=== PATIENT | male | born 1945 | race Caucasian/White ===

== ENCOUNTER 2019-10-16 08:51 | Outpatient (CLI) | payer MEDICARE, SELFPAY ==
--- NOTE | 2019-10-16 09:42 | ECG_ITS ---
Measurements Intervals [place] Rate: 84 P: 44 NE: 168 QRS: -5 QRSD: 89 T: 8 QT: 378 QTc: 447 Interpretive Statements SINUS RHYTHM VOLTAGE CRITERIA FOR LVH BORDERLINE T WAVE ABNORMALITY- ANT/INF LEADS BASELINE ARTIFACT- I, II, III, AVR, AVL, AVF, V5-V6 BORDERLINE ECG Electronically Signed On 10-16-2019 10:54:49 [facility] [employer] by Ramiro Meléndez D.O.
[2019-10-16 10:08] LABS: Basophils Percent Auto 0.3 % (0.2-1.2); Eosinophils Absolute Auto 0.1 K/mm3 (0-0.3); Hematocrit 45.2 % (42.0-52.0); Hemoglobin 14.8 g/dL (14.0-18.0); Immature Granulocyte Absolute 0.02 K/mm3 (0.00-0.031); Immature Granulocyte Percent A 0.3 % (0-0.5); Lymphocytes Absolute Auto 1.74 K/mm3 (0.9-3.2); Lymphocytes Percent Auto 26.8 % (18.3-44.2); Mean Corpuscular HGB Conc 32.7 g/dl (32-36); Mean Corpuscular Volume 94.6 fl (80-100); Mean Platelet Volume 10.1 fl (7.4-10.4); Monocytes Absolute Auto 0.6 K/mm3 (0.1-0.6); Monocytes Percent Auto 9.4 % (2.6-8.5); Neutrophils Percent Auto 61.2 % (45.5-73.1); Platelet Count Result 231 k/mm3 (150-375); Red Blood Count 4.78 M/mm3 (4.6-6.20); Red Cell Distribution Width 12.6 % (11.5-14.5); White Blood Count 6.5 K/mm3 (4.5-10.0)
[2019-10-16 10:16] LABS: Partial Thromboplastin Time 23.2 SECONDS (22.3-36.8); Prothrombin Time 12.4 Seconds (11.1-14.7)
[2019-10-16 10:17] LABS: Alanine Aminotransferase 41 U/L (4-50); Alkaline Phosphatase 92 U/L (38-126); Aspartate Amino Transferase 47 U/L (17-59); Bilirubin,Total 1.3 mg/dL (0.2-1.3); Blood Urea Nitrogen 16 mg/dL (9-20); Calcium 9.5 mg/dL (8.4-10.2); Carbon Dioxide 28 mmol/L (22-30); Chloride 101 mmol/L (98-107); Estimated Glomerular Filt Rate > 60; Glucose 110 mg/dL (75-110); Potassium 3.7 mmol/L (3.4-5.0); Sodium 141 mmol/L (137-145)
== END 2019-10-16 08:52 | disposition home or self-care (01) ==
PROVIDERS: Visit Provider Urology
DX: I10 Essential (primary) hypertension (principal); C61 Malignant neoplasm of prostate
CPT/HCPCS: 36415; 80053; 85025; 85610; 85730; 86850; 86900; 86901; 87086; 87088; 93005

== ENCOUNTER 2023-02-07 08:16 | Emergency (ER) | payer MEDICARE, SELFPAY ==
--- NOTE | ~2023-02-07 | XR_ITS ---
EXAMINATION: XR chest 2V DATE: 02/07/2023 08:45 INDICATION: Productive cough TECHNIQUE: PA and lateral views of the chest are obtained. COMPARISON: 11/08/2011 FINDINGS: The lungs are free of acute opacities. No pleural effusion or pneumothorax. The cardiomedia stinal silhouette is normal. There is mild thoracic spondylosis. 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 IMPRESSION: 1. No acute cardiopulmonary abnormality. Reviewed, dictated and finalized at location B.
[2023-02-07 08:25] VITALS: BP 123/81; PULSE 97; RESP 18; TEMP 36.1; O2SAT 96
--- NOTE | 2023-02-07 08:38 | ED.URI ---
HPI - URI/Sore Throat General Chief Complaint: Upper Respiratory Infection Stated Complaint: Congestion,Cough Time Seen by Provider: 02/07/23 08:18 Source: patient Mode of arrival: ambulatory Limitations: no limitations History of Present Illness HPI Narrative: 77-year-old male presents to [facility] accompanied by his for complaints of nonproductive cough, nasal congestion and chest congestion for the past 5 days. Patient denies ear pain, sore throat, fever, body aches, chills, shortness of breath, wheezing, nausea, vomiting or diarrhea. Patient is nonsmoker. Patient denies sick contacts. Patient denies recent travel. Patient has been taking [id number] [place] and Mucinex with minimal relief. Patient reports that he does have history of pneumonia and bronchitis. MD elicited complaint: cough Onset (ago): day(s) Able to tolerate fluids by mouth: Yes Exacerbating factors: nothing Relieving factors: nothing Treatments prior to arrival: cold medicine Related Data Home Medications Medication Instructions Recorded Confirmed atorvastatin 20 mg tablet 20 mg PO DAILY 10/16/19 02/07/23 diphenhydramine 25 1 tablet PO HS PRN SLEEP 10/16/19 02/07/23 mg-acetaminophen 500 mg tablet (Tylenol PM Extra Strength) hydrochlorothiazide 25 mg tablet 25 mg PO DAILY 10/16/19 02/07/23 prednisone 10 mg tablet 10 mg PO DAILY 02/07/23 02/07/23 Allergies Allergy/AdvReac Type Severity Reaction Status Date / Time No Known Allergies Allergy Mild Verified 02/07/23 08:18 Review of Systems Constitutional: Constitutional: Denies chills, Denies fatigue, Denies fever(s) and Denies weakness ENT: Denies vertigo, Denies dizziness, Denies epistaxis and Reports nasal congestion Cardiovascular: Cardiovascular: Denies chest pain Respiratory: Respiratory: Reports chest congestion, Reports cough, Denies dyspnea and Denies wheezing Gastrointestinal: Gastrointestinal: Denies heartburn, Denies diarrhea, Denies nausea and Denies vomiting Integumentary/Breasts: Skin/Breast: Denies rash Neurologic: Denies vertigo, Denies dizziness, Denies syncope and Denies headache(s) [facility], [facility] Past Medical History Medical History (Updated 02/07/23 @ 09:08 by Angelica Mason APRN) Arthritis Hyperlipidemia Hypertension Prostate cancer Social History Social History Smoking status: Never smoker Alcohol intake: current Drinks per week: 14 Substance use: never Substance use type: does not use Gender identity (if verbalized by the patient): Male Spiritual care concerns: No Agree to blood products: No Comments At time of signature, I agree with nursing past medical, surgical, social and family history. There is no relevant family history pertinent to the presenting complaint. Exam Const: General: healthy appearing and no acute distress Nutritional Appearance: well nourished Orientation/consciousness: patient oriented x3 Limitations: no limitations HENMT: Head: normal to inspection Ears: external ears normal and TM's normal bilaterally Face/Nose/Sinus: Normal external nose present Face and sinus: normal facial exam Mouth: Yes Normal oral and palatal mucosa present and Yes moist mucous membranes Teeth and gingiva: dentition normal Throat: posterior oropharynx normal and uvula midline Neck: Neck: normal visual inspection Resp: Effort & Inspection: normal respiratory effort and not labored Auscultation: clear to auscultation bilaterally, no crackles, no rales, no rhonchi, no wheezes and breath sounds present Cardio: Rate: regular rate Rhythm: regular rhythm Heart sounds: no murmurs Skin: General skin exam: normal color Rashes: no rashes Wounds: no wounds Neuro: General: patient oriented x3 Speech: normal speech Psych: Affect: normal affect Attitude: cooperative Course Course Level of Care: Express Care Visit Vital Signs Vital signs: Vital Signs [place]
== END 2023-02-07 09:10 | disposition home or self-care (01) ==
PROVIDERS: Emergency Provider Nurse Practitioner Family; PCP Family Medicine
DX: J06.9 Acute upper respiratory infection, unspecified (principal); M19.90 Unspecified osteoarthritis, unspecified site; E78.5 Hyperlipidemia, unspecified; I10 Essential (primary) hypertension; Z85.46 Personal history of malignant neoplasm of prostate
CPT/HCPCS: 71046; 99213; G0463

== ENCOUNTER 2025-01-28 13:41 | Emergency (ER) | payer MEDICARE, SELFPAY ==
[2025-01-28 13:47] VITALS: BP 144/87; PULSE 97; RESP 15; TEMP 36.6; O2SAT 96
--- NOTE | 2025-01-28 14:10 | ED_ITS ---
HPI - Wound/Laceration General Chief Complaint: Wound/Laceration Stated Complaint: lac to R leg Time Seen by Provider: 01/28/25 14:00 Focused HPI: Patient is a 79-year-old male who presents to the ER with a right calf laceration. He reports his dog jumped on him yesterday and, either the dogs toenails or collar, scratched the medial portion of his right calf. Patient's wound is approximately 3 in long and continues to ooze blood. He endorses a history of high blood pressure and hyperlipidemia, but reports he is not on blood thinners. Patient denies any pain, calf pain, ankle pain, decreased range of motion. GENERAL: Well-appearing, well-nourished, and in no acute distress. HEAD: Normocephalic, atraumatic. CHEST: Clear to auscultation. ?No respiratory distress. HEART: Regular rate and rhythm.? NEURO: ?Alert and oriented x3. Patient screened in triage and initial orders placed.? ?Additional care and disposition to be based upon?diagnostic testing and treatment. Related Data Home Medications ?Medication ?Instructions ?Recorded ?Confirmed ?Last Taken ?Type atorvastatin 20 mg tablet 20 mg PO DAILY 10/16/19 02/07/23 10/23/19 04:30 History diphenhydramine 25 1 tablet PO HS PRN SLEEP 10/16/19 02/07/23 10/21/19 History mg-acetaminophen 500 mg tablet (Tylenol PM Extra Strength) hydrochlorothiazide 25 mg tablet 25 mg PO DAILY 10/16/19 02/07/23 10/23/19 04:30 History prednisone 10 mg tablet 10 mg PO DAILY 02/07/23 02/07/23 Unknown History Allergies Allergy/AdvReac Type Severity Reaction Status Date / Time No Known Allergies Allergy Mild Verified 01/28/25 13:42 [facility] Past Medical History Medical History (Updated 01/28/25 @ 15:36 by Praveena Hobson III, DO) Prostate cancer Arthritis Hypertension Hyperlipidemia Social History Social History Smoking status: Never smoker Alcohol intake: current Drinks per week: 14 Substance use: never Substance use type: does not use Gender identity (if verbalized by the patient): Male Spiritual care concerns: No Agree to blood products: No Course Vital Signs Vital signs: Vital Signs Temperature 36.6 C 01/28/25 13:47 Pulse Rate 97 01/28/25 13:47 Respiratory Rate 15 01/28/25 13:47 Blood Pressure 144/87 H 01/28/25 13:47 Pulse Oximetry 96 01/28/25 13:47 Oxygen Delivery Room Air 01/28/25 13:47 Temperature 36.6 C 01/28/25 15:44 Pulse Rate 90 01/28/25 15:44 Respiratory Rate 16 01/28/25 15:44 Blood Pressure 140/89 01/28/25 15:44 Pulse Oximetry 97 01/28/25 15:44 Oxygen Delivery Room Air 01/28/25 13:47 Discharge Plan Discharge Clinical Impression: Skin tear Patient Disposition: Home, Self-Care Condition: Stable Instructions: Antibiotic Form, Skin Tear (ED) Patient Language: Ukrainian Prescriptions: No Action prednisone 10 mg tablet 10 mg PO DAILY doxycycline hyclate 100 mg capsule 100 mg PO BID 10 Days Qty: 20 0RF benzonatate 100 mg capsule 100 mg PO TID PRN (Reason: cough) Qty: 20 0RF atorvastatin 20 mg Tablet 20 mg PO DAILY hydrochlorothiazide 25 mg Tablet 25 mg PO DAILY diphenhydramine-acetaminophen [Tylenol PM Extra Strength] 25-500 mg Tablet 1 tablet PO HS PRN (Reason: SLEEP) hyoscyamine sulfate [Anaspaz] 0.125 mg Tablet,Disintegrating 0.125 mg sublingual Q4H PRN (Reason: Bladder Spasm) 10 Days Qty: 40 0RF Follow-up/Referrals: Kat,Chai Andrade MD [Primary Care Provider] -
--- NOTE | 2025-01-28 15:30 | ED_ITS ---
HPI - Wound/Laceration General Chief Complaint: Wound/Laceration Stated Complaint: lac to R leg Time Seen by Provider: 01/28/25 14:00 History of Present Illness HPI narrative: Pt had his dog jump onto him and scratch his leg causing a skin tear that continues to bleed. Dressing applied. Pt denies other injury. Related Data Home Medications ?Medication ?Instructions ?Recorded ?Confirmed ?Last Taken ?Type atorvastatin 20 mg tablet 20 mg PO DAILY 10/16/19 02/07/23 10/23/19 04:30 History diphenhydramine 25 1 tablet PO HS PRN SLEEP 10/16/19 02/07/23 10/21/19 History mg-acetaminophen 500 mg tablet (Tylenol PM Extra Strength) hydrochlorothiazide 25 mg tablet 25 mg PO DAILY 10/16/19 02/07/23 10/23/19 04:30 History prednisone 10 mg tablet 10 mg PO DAILY 02/07/23 02/07/23 Unknown History Allergies Allergy/AdvReac Type Severity Reaction Status Date / Time No Known Allergies Allergy Mild Verified 01/28/25 13:42 Review of Systems Review of Systems: All systems reviewed & are unremarkable except as noted in HPI and below PMFSH Past Medical History Medical History (Updated 01/28/25 @ 15:36 by Praveena Hobson III, DO) Prostate cancer Arthritis Hypertension Hyperlipidemia Social History Social History Smoking status: Never smoker Alcohol intake: current Drinks per week: 14 Substance use: never Substance use type: does not use Gender identity (if verbalized by the patient): Male Spiritual care concerns: No Agree to blood products: No Exam Const: General: healthy appearing and no acute distress Nutritional Appearance: well nourished Orientation/consciousness: patient oriented x3 Limitations: no limitations Chest: Chest palpation & inspection: normal inspection of the chest Resp: Effort & Inspection: normal respiratory effort Auscultation: clear to auscultation bilaterally Cardio: Rate: regular rate Rhythm: regular rhythm Skin: Other: skin tear right leg with small area of superficial venous bleeding, area cauterized with silver nitrate which mostly stopped bleeding, wrapped with coban, bleeding controlled. Course Vital Signs Vital signs: Vital Signs Temperature 97.8 F 01/28/25 13:47 Pulse Rate 97 01/28/25 13:47 Respiratory Rate 15 01/28/25 13:47 Blood Pressure 144/87 H 01/28/25 13:47 Pulse Oximetry 96 01/28/25 13:47 Oxygen Delivery Room Air 01/28/25 13:47 Temperature 97.9 F 01/28/25 15:44 Pulse Rate 90 01/28/25 15:44 Respiratory Rate 16 01/28/25 15:44 Blood Pressure 140/89 01/28/25 15:44 Pulse Oximetry 97 01/28/25 15:44 Oxygen Delivery Room Air 01/28/25 13:47 MDM - Wound/Laceration MDM Narrative Medical decision making narrative: Pt has skin tear on leg from dog jumping on him. silver nitrate cautery to area oozing and bleeding mostly stopped. dressed and wrapped. Discharge Plan Discharge Clinical Impression: Skin tear Patient Disposition: Home, Self-Care Condition: Stable Instructions: Antibiotic Form, Skin Tear (ED) Patient Language: Bolivian Prescriptions: No Action prednisone 10 mg tablet 10 mg PO DAILY doxycycline hyclate 100 mg capsule 100 mg PO BID 10 Days Qty: 20 0RF benzonatate 100 mg capsule 100 mg PO TID PRN (Reason: cough) Qty: 20 0RF atorvastatin 20 mg Tablet 20 mg PO DAILY hydrochlorothiazide 25 mg Tablet 25 mg PO DAILY diphenhydramine-acetaminophen [Tylenol PM Extra Strength] 25-500 mg Tablet 1 tablet PO HS PRN (Reason: SLEEP) hyoscyamine sulfate [Anaspaz] 0.125 mg Tablet,Disintegrating 0.125 mg sublingual Q4H PRN (Reason: Bladder Spasm) 10 Days Qty: 40 0RF Follow-up/Referrals: Kat,Chai Andrade MD [Primary Care Provider] -
--- OUTSIDE RECORDS SUMMARY | 2025-01-28 15:39 | XMS_ITS | Encounter Summary ---
Author Organization [facility] Address [address] [place] [address] Care Team Providers Care Mixer Slagman Name Role Phone Unavailable Primary Care Provider Unavailabl e Encounter Details Date Type Department Care Team (Late st Contact Info) Description 08/29/2024 Lab Requisition [facility] - DermPath Lab [address] [facility] [place] [address] Madeleine Woody DO [address] [facility] [address] [place] [address] Social History Tobacco Use Types Packs/Day Years Used Date Smoking Tobacco: Never Assessed Sex and Gender Information Value Date Recorded Sex Assigned at Not on file Gender Identity Not on file Sexual Orientation Not on file documented as of this encounter Plan of Treatment Not on file documented as of this encounter Procedures Procedure Name Priority Date/Time Associated Diagnosis Comments DERMATOPATHOLOGY Routine 08/29/2024 9:38 AM CDT documented in this encounter Results * DERMATOPATHOLOGY (08/29/2024 9:38 AM CDT) Case Report Dermatopathology Report Case: [id number] Authorizing Provider: Madeleine Woody DO Collected: 08/29/2024 09:38 AM Ordering Location: [facility] - Received: 08/30/2024 07:09 AM DermPath Lab Pathologist: Kelley Walters MD Specimen: Skin, left antihelix 11:56 AM CDT DERMATOPATHOLOGY LABORATORY Final Diagnosis Specimen A. SKIN, left antihelix: SQUAMOUS CELL CARCINOMA, WELL DIFFERENTIATED (C44.229) 11:56 AM CDT DERMATOPATHOLOGY LABORATORY Clinical History R/o NMSC 11:56 AM CDT DERMATOPATHOLOGY LABORATORY Gross Description Specimen A: Received is one formalin filled container labeled with the patient's name and designated left antihelix. The specimen consists of a shave biopsy measuring 7x7x1 mm. Jar 0. 11:56 AM T DERMATOPATHOLOGY LABORATORY Microscopic Description Specimen A. SKIN, left antihelix: Arising in the epidermis and extending into the dermis there are irregularly shaped aggregates of keratinocytes showing evidence of premature cornification. 11:56 AM T DERMATOPATHOLOGY LABORATORY Disclaimer An external and internal positive and negative controls are appropriate for the histochemical, immunohistochemical and immunofluorescence stain(s) in this case (if any), except where stated explicitly. The performance characteristics of the stain(s) cited in this report were developed and its performance characteristic determined by the Dermatopathology Laboratory at [facility], directed by Dr. Rhett Tabor. These tests need not be, and therefore are not, approved by the [place] Food and Drug Administration. The tests are used for clinical purposes. Billing Codes Specimen Charges Stain Charges 81429 1 11:56 AM CDT DERMATOPATHOLOGY LABORATORY Embedded Images 11:56 AM CDT DERMATOPATHOLOGY LABORATORY Pathology/Cytolo gy TISSUE SPECIMEN FROM SKIN / Unknown 08/29/2024 9:38 AM CDT 08/30/2024 7:09 AM CDT Madeleine Woody DO LAB - PATHOLOGY/C YTOLOGY ORDERABLES DERMATOPATHOLOGY LABORATORY [facility] - Department of Dermatology [address], [address] [phone] documented in this encounter Visit Diagnoses Not on filedocumented in this encounter
--- OUTSIDE RECORDS SUMMARY | 2025-01-28 15:39 | XMS_ITS | Clinical Summary ---
Author Organization [facility] Address [address] [place] [address] Care Team Providers Care Non Destructive Evaluation Specialist Name Role Phone Kat Chai Komal ABDI Primary Care Provider [phone] Allergies No known active allergies Medications hydroCHLOROthia zide 25 MG tablet Take 25 mg by mouth every morning. Active Ibuprofen-diphe nhydrAMINE HCl (ADVIL PM) 200-25 MG Cap Take 2 tablets by mouth nightly. Active amoxicillin 500 MG capsuleIndicati ons:WHEN GOING TO DENTIST Indications: WHEN GOING TO DENTIST 11/13/2020 Active DENTA 5000 PLUS 1.1 % Cream BRUSH 2 TIMES DAILY FOR 2 MINUTES AND SPIT 12/15/2020 Active atorvastatin 20 MG tablet Take 20 mg by mouth nightly at bedtime. Active Active Problems Problem Noted Date Diagnosed Date Closed fracture of first lum bar vertebra with delayed healing 06/16/2021 Lumbar radiculopathy 06/16/2021 Family History Medical History Relation Comments Cancer Brother Relation Status Comments Brother Other lung Social History Tobacco Use Types Packs/Day Years Used Date Smoking Tobacco: Never Smokeless Tobacco: Never Alcohol Use Standard Drinks/Week Comments Yes 0 (1 standard drink = 0.6 oz pur e alcohol) 2-3 per day Sex and Gender Information Value Date Recorded Sex Assigned at Not on file Legal Sex Male 8:13 PM CDT Gender Identity Not on file Sexual Orientation Not on file Last Filed Vital Signs Vital Sign Reading Time Taken Comments Blood Pressure 158/85 08/17/2021 8:50 AM CDT Pulse 68 08/17/2021 8:50 AM CDT Temperature 36.6 C (97.9 F) 08/17/2021 8:10 AM CDT Respiratory Rate 20 08/17/2021 8:50 AM CDT Oxygen Saturation 94% 08/17/2021 8:50 AM CDT Inhaled Oxygen Concentration - - Weight 86.4 kg (190 lb 6.4 oz) 08/17/2021 8:10 A M CDT Height 170.2 cm (5' 7 ) 08/17/2021 8:10 AM CDT Body Mass Index 29.82 08/17/2021 8:10 AM CDT Plan of Treatment Health Maintenance Due Date Last Done Comments Hepatitis C 1963 DTaP, Tdap and Td Vaccines (1 - Tdap) 1964 Annual Medicare Wellness Visit 2011 Pneumococcal Vaccine: 65+ Years (2 of 2 - PCV) 08/26/2012 08/26/2011, 11/15/2009 Zoster Vaccines (2 of 3) 07/10/2016 05/15/2016 RSV Immunization or 60+ Years (1 - 1-dose 75+ series) 2021 COVID-19 Vaccine (3 - season) 2024 01/01/2021, 12/11/2020 Influenza Adult (#1) 2024 08/19/2020, 08/23/2019, 08/28/2018, Additional history exists Colorectal Cancer Screening Colonoscopy (10 Years) Discontinued 12/08/2003 Meningococcal B Vaccine Aged Out No l onger eligible based on patient's age to complete this topic Meningococcal Vaccine Aged Out No rosa maria selma eligible based on patient's age to complete this topic RSV Immunizations Under 20 Months Aged Out No longer eligible based on patient's age to complete this topic Procedures Procedure Name Priority Date/Time Associated Diagnosis Comments COLONOSCOPY Routine 12/08/2003 12:00 AM LUNCHROOM ATTENDANT from Last 3 Months or Most Recently Relevant to Health Maintenance Results * Colonoscopy (12/08/2003 12:00 AM LUNCHROOM ATTENDANT) 12/08/2003 12/08/2003 Narrative [facility] TO EPIC CONVERSION - 12/08/2003 12:00 AM LUNCHROOM ATTENDANT Documented hx of procedure Procedure Note Amber Keane MD - 09/10/2018 Documented hx of procedure us Generic Conversion Md KEANE GI PROCEDURE ORDERABLES Final Result [facility] TO EPIC CONVERSION from Last 3 Months or Most Recently Relevant to Health Maintenance Insurance MED REPLACE [facility] MEDICARE Care Teams Non Destructive Evaluation Specialist Relationship Specialty Start Date End Date Chai Stephens DO [address] [place] [address] PCP - General 11/28/15
--- OUTSIDE RECORDS SUMMARY | 2025-01-28 15:39 | XMS_ITS | Encounter Summary ---
Author Organization [facility] Address [address] [place] [address] Care Team Providers Care Fundraising Sale Representative Name Role Phone Unavailable Primary Care Provider Unavailabl e Encounter Details Date Type Department Care Team (Late st Contact Info) Description 09/08/2023 Lab Requisition [facility] - [facility] Lab [address] [facility] [place] [address] Madeleine Woody DO [address] [facility] [address] [place] [address] Social History Tobacco Use Types Packs/Day Years Used Date Smoking Tobacco: Never Assessed Sex and Gender Information Value Date Recorded Sex Assigned at Not on file Gender Identity Not on file Sexual Orientation Not on file documented as of this encounter Plan of Treatment Not on file documented as of this encounter Procedures Procedure Name Priority Date/Time Associated Diagnosis Comments DERMATOPATHOLOGY Routine 09/08/2023 9:32 AM CDT documented in this encounter Results * DERMATOPATHOLOGY (09/08/2023 9:32 AM CDT) Case Report Dermatopathology Report Case: [id number] Authorizing Provider: Madeleine Woody DO Collected: 09/08/2023 09:32 AM Ordering Location: [facility] DermPath Lab Received: 09/09/2023 01:22 PM Pathologist: Cristela Waletrs MD Specimens: A) - Skin, left post auricular B) - Skin, left chest 1:12 PM [facility] DERMATOPATHOLOGY LABORATORY Final Diagnosis Specimen A. SKIN, left post auricular: BASAL CELL CARCINOMA, NODULAR TYPE (C44.41) Specimen B. SKIN, left chest: HYPERPLASTIC (HYPERTROPHIC) ACTINIC KERATOSIS (L57.0) 1:12 PM [facility] DERMATOPATHOLOGY LABORATORY Clinical History A-B: R/O NMSC 1:12 PM [facility] DERMATOPATHOLOGY LABORATORY Gross Description Specimen A: Received is one formalin filled container labeled with the patient's name and designated left post auricular. The specimen consists of a shave biopsy measuring 6x5x1 mm. Jar 0. Specimen B: Received is one formalin filled container labeled with the patient's name and designated left chest. The specimen consists of a shave biopsy measuring 7x5x1 mm. Jar 0. 1:12 PM [facility] DERMATOPATHOLOGY LABORATORY Microscopic Description Specimen A. SKIN, left post auricular: Within the dermis there are aggregates of basaloid cells with a high nuclear to cytoplasmic ratio and peripheral palisading. Specimen B. SKIN, left chest: There is hyperkeratosis alternating with parakeratosis. There is epidermal hyperplasia with disorderly maturation of keratinocytes with nuclear pleomorphism confined to the lower half of the epidermis. There is a lymphohistiocytic infiltrate within the dermis. 1:12 PM [facility] DERMATOPATHOLOGY LABORATORY Disclaimer An external and internal positive and negative controls are appropriate for the histochemical, immunohistochemical and immunofluorescence stain(s) in this case (if any), except where stated explicitly. The performance characteristics of the stain(s) cited in this report were developed and its performance characteristic determined by the Dermatopathology Laboratory at [facility], directed by Dr. Rhett Tabor. These tests need not be, and therefore are not, approved by the [place] Food and Drug Administration. The tests are used for clinical purposes. Billing Codes Specimen Charges Stain Charges 96919 43930 1 1 3 1:12 PM [facility] DERMATOPATHOLOGY LABORATORY Embedded Images 1:12 PM [facility] DERMATOPATHOLOGY LABORATORY Pathology/Cytology TISSUE SPECIMEN FROM SKIN / Unknown 09/08/2023 9:32 AM CDT 09/09/2023 1:22 PM CDT Miscellaneous samples (specimen) TISSUE SPECIMEN FROM SKIN / Unknown 09/08/2023 9:32 AM CDT 09/09/2023 1:22 PM CDT Madeleine Mylene Woody DO LAB - PATHOLOGY/C YTOLOGY ORDERABLES DERMATOPATHOLOGY LABORATORY [facility] - Department of Dermatology [facility] [address] [place] [address], [address] [phone] documented in this encounter Visit Diagnoses Not on filedocumented in this encounter
--- OUTSIDE RECORDS SUMMARY | 2025-01-28 15:39 | XMS_ITS | Encounter Summary ---
Author Organization [facility] Address [address] [facility] [place] [address] Care Team Providers Care Rental Car Deliverer Name Role Phone Unavailable Primary Care Provider Unavailabl e Encounter Details Date Type Department Care Team (Late st Contact Info) Description 10/19/2018 Lab Requisition [facility] Care DermPath Lab [address] [facility], [place] [address] Yarelis Torres MD [address] [facility] 3 DE[place] [address] Social History Tobacco Use Types Packs/Day Years Used Date Smoking Tobacco: Never Assessed Sex and Gender Information Value Date Recorded Sex Assigned at Not on file Gender Identity Not on file Sexual Orientation Not on file documented as of this encounter Plan of Treatment Not on file documented as of this encounter Procedures Procedure Name Priority Date/Time Associated Diagnosis Comments DERMATOPATH TECHNICAL REPORT Routine 10/18/2018 12:00 AM PAN WASHER documented in this encounter Results * DERMATOPATH TECHNICAL REPORT (10/18/2018 12:00 AM PAN WASHER) Case Report Dermatopathology Report Case: [id number] Authorizing Provider: Yarelis Torres MD Collected: 10/18/2018 12:00 AM Pathologist: Porsha Tabor MD Received: 10/19/2018 06:51 AM Specimen: Skin, right lateral eyebrow 8 11:25 AM PAN WASHER DERMATOPATHOLOGY LABORATORY Clinical History R/O BCC, irritated, non-healing. Check margins. 8 11:25 AM PAN WASHER DERMATOPATHOLOGY LABORATORY Gross Description Specimen A: Received is one formalin filled container labeled with the patient's name and designated right lateral eyebrow. The specimen consists of a shave measuring 0p0m9zd. The margin is inked green. Jar 0. [facility] Dermatopathology Laboratory performed the technical component only. 8 11:25 AM [facility] DERMATOPATHOLOGY LABORATORY Embedded Images 8 11:25 AM [facility] DERMATOPATHOLOGY LABORATORY DISCLAIMER An external and internal positive and negative controls are appropriate for the histochemical, immunohistochemical and immunofluorescence stain(s) in this case (if any), except where stated explicitly. The performance characteristics of the stain(s) cited in this report were developed and its performance characteristic determined by the Dermatopathology Laboratory at [facility]. These tests need not be, and therefore are not, approved by the [place] Food and Drug Administration. The tests are used for clinical purposes. 8 11:25 AM [facility] DERMATOPATHOLOGY LABORATORY Pathology/Cytolog y TISSUE SPECIMEN FROM SKIN / Unknown 10/18/2018 10/19/2018 6:51 AM PAN WASHER Yarelis Torres MD LAB - PATHOLOGY/CYT OLOGY ORDERABLES DERMATOPATHOLOGY LABORATORY [facility] - Department of Dermatology [address] [place] [address], 5th [place] [address], [facility] [phone] documented in this encounter Visit Diagnoses Not on filedocumented in this encounter
--- OUTSIDE RECORDS SUMMARY | 2025-01-28 15:39 | XMS_ITS | Encounter Summary ---
Author Organization [facility] Address [facility] access hospital[address] [place] [address] Care Team Providers Care Stock House Worker Name Role Phone Chai Stephens DO Primary Care Provider [phone] Encounter Details Date Type Department Care Team (Latest Contact Info) Description 09/12/2018 Abstract [facility] , Amber Au MD Social History Tobacco Use Types Packs/Day Years Used Date Smoking Tobacco: Never Assessed Sex and Gender Information Value Date Recorded Sex Assigned at Not on file Legal Sex Male 8:13 PM CDT Gender Identity Not on file Sexual Orientation Not on file documented as of this encounter Plan of Treatment Not on file documented as of this encounter Visit Diagnoses Not on filedocumented in this encounter Care Teams Stock House Worker Relationship Specialty Start Date End Date Chai Stephens DO [address] [place] [address] PCP - General 11/28/15 documented as of this encounter
--- OUTSIDE RECORDS SUMMARY | 2025-01-28 15:39 | XMS_ITS | Encounter Summary ---
Author Organization [facility] Address [facility] [place] [address] Care Team Providers Care Date Night Caregiver Name Role Phone Chai Stephens DO Primary Care Provider [phone] Encounter Details Date Type Department Care Team (Late st Contact Info) Description 03/02/2016 Abstract [facility] CONVERSION [address] [place] [address] , Generic ConversionMD Social History Tobacco Use Types Packs/Day Years [...] on filedocumented in this encounter Care Teams Date Night Caregiver Relationship Specialty Start Date End Date Chai Stephens DO [address] [place] [address] PCP - General 11/28/15 documented as of this encounter
--- OUTSIDE RECORDS SUMMARY | 2025-01-28 15:39 | XMS_ITS | Encounter Summary ---
Author Organization [facility] Address [address] [facility] [place] [address] Care Team Providers Care Machine Clothing Replacer Name Role Phone Unavailable Primary Care Provider Unavailabl e Encounter Details Date Type Department Care Team (Late st Contact Info) Description 12/04/[address] [facility] - DermPath Lab [address] [facility], [place] [address] Madeleine Woody DO [address] [facility] 3 [place] [address] Social History Tobacco Use Types Packs/Day Years Used Date Smoking Tobacco: Never Assessed Sex and Gender Information Value Date Recorded Sex Assigned at Not on file Gender Identity Not on file Sexual Orientation Not on file documented as of this encounter Plan of Treatment Not on file documented as of this encounter Procedures Procedure Name Priority Date/Time Associated Diagnosis Comments DERMATOPATHOLOGY Routine 12/04/2024 9:15 AM MARKETING RESEARCH INTERN documented in this encounter Results * DERMATOPATHOLOGY (12/04/2024 9:15 AM MARKETING RESEARCH INTERN) Case Report Dermatopathology Report Case: [id number] Authorizing Provider: Madeleine Woody DO Collected: 12/04/2024 09:15 AM Ordering Location: [facility] - Received: 12/04/2024 02:55 PM DermPath Lab Pathologist: Porsha Tabor MD Specimens: A) - Skin, left chest B) - Skin, right lower lip 12:14 PM MARKETING RESEARCH INTERN DERMATOPATHOLOGY LABORATORY Final Diagnosis Specimen A. SKIN, left chest: BASAL CELL CARCINOMA, MICRONODULAR TYPE (C44.519) Specimen B. 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 The specimen consists of a shave biopsy measuring 11x8x2 mm. Jar 0. Specimen B: Received is one formalin filled container labeled with the patient's name and designated right lower lip. The specimen consists of a shave biopsy measuring 7x5x1 mm. Jar 0. 12:14 PM [facility] DERMATOPATHOLOGY LABORATORY Microscopic Description Specimen A. SKIN, left chest: Within the dermis there are small aggregates of basaloid cells with a high nuclear to cytoplasmic ratio and peripheral palisading of their nuclei. Specimen B. SKIN, right lower lip: Arising in the epidermis and extending into the dermis there are irregularly shaped aggregates of keratinocytes showing evidence of premature cornification. 12:14 PM [facility] DERMATOPATHOLOGY LABORATORY Disclaimer An external and internal positive and negative controls are appropriate for the histochemical, immunohistochemical and immunofluorescence stain(s) in this case (if any), except where stated explicitly. The performance characteristics of the stain(s) cited in this report were developed and its performance characteristic determined by the Dermatopathology Laboratory at [facility], directed by Dr. Rhett Tabor. These tests need not be, and therefore are not, approved by the [place] Food and Drug Administration. The tests are used for clinical purposes. Billing Codes Specimen Charges Stain Charges 01675 90708 1 1 12:14 PM [facility] DERMATOPATHOLOGY LABORATORY Embedded Images 12:14 PM [facility] DERMATOPATHOLOGY LABORATORY Pathology/Cytology TISSUE SPECIMEN FROM SKIN / Unknown 12/04/2024 9:15 AM MARKETING RESEARCH INTERN 12/04/2024 2:55 PM MARKETING RESEARCH INTERN Miscellaneous samples (specimen) TISSUE SPECIMEN FROM SKIN / Unknown 12/04/2024 9:15 AM MARKETING RESEARCH INTERN 12/04/2024 2:55 PM MARKETING RESEARCH INTERN Madeleine Woody DO LAB - PATHOLOGY/C YTOLOGY ORDERABLES DERMATOPATHOLOGY LABORATORY [facility] - Department of Dermatology [facility] [address] [place] [address], [address]rd [address] [phone] documented in this encounter Visit Diagnoses Not on filedocumented in this encounter
--- OUTSIDE RECORDS SUMMARY | 2025-01-28 15:39 | XMS_ITS | Encounter Summary ---
Author Organization [facility] Address [address] [facility] [place] [address] Care Team Providers Care Inspector Elevators Name Role Phone Unavailable Primary Care Provider Unavailabl e Encounter Details Date Type Department Care Team (Late st Contact Info) Description 04/26/2019 Lab Requisition [facility] Care DermPath Lab [address] [facility], [place] [address] Yarelis Torres MD [address] [facility] 3 [place] [address] Social History Tobacco Use Types Packs/Day Years Used Date Smoking Tobacco: Never Assessed Sex and Gender Information Value Date Recorded Sex Assigned at Not on file Gender Identity Not on file Sexual Orientation Not on file documented as of this encounter Plan of Treatment Not on file documented as of this encounter Procedures Procedure Name Priority Date/Time Associated Diagnosis Comments DERMATOPATHOLOGY Routine 04/25/2019 12:0 0 AM CDT documented in this encounter Results * DERMATOPATHOLOGY (04/25/2019 12:00 AM CDT) Case Report Dermatopathology Report Case: [id number] Authorizing Provider: Yarelis Torres MD Collected: 04/25/2019 12:00 AM Pathologist: Porsha Tabor MD Received: 04/26/2019 06:46 AM Specimens: A) - Skin, left frontal hairline B) - Skin, right sideburn 9 2:15 PM CDT DERMATOPATHOLOGY LABORATORY Final Diagnosis Specimen A. 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 Check margins. 2:15 PM T DERMATOPATHOLOGY LABORATORY Gross Description Specimen A: Received is one formalin filled container labeled with the patient's name and designated left frontal hairline. The specimen consists of a shave (2 pieces) measuring 3f7y0xi & 6p2z7gf. The margin is inked green. Jar 0. Specimen B: Received is one formalin filled container labeled with the patient's name and designated right sideburn. The specimen consists of a shave measuring 3g7s5bb. The margin is inked green. Jar 0. 2:15 PM T DERMATOPATHOLOGY LABORATORY Microscopic Description Specimen A. SKIN, left frontal hairline: Neutrophils, histiocytes, and multinucleated giant cells are present within the dermis. This lesion is present at the margin of the specimen. Specimen B. SKIN, right sideburn: The epidermis shows parakeratosis, full thickness disorderly maturation of keratinocytes, mitoses at different levels, and dyskeratotic cells. This lesion is present at the margin of the specimen. 2:15 PM T DERMATOPATHOLOGY LABORATORY Disclaimer An external and internal positive and negative controls are appropriate for the histochemical, immunohistochemical and immunofluorescence stain(s) in this case (if any), except where stated explicitly. The performance characteristics of the stain(s) cited in this report were developed and its performance characteristic determined by the Dermatopathology Laboratory at [facility], directed by Dr. Rhett Tabor. These tests need not be, and therefore are not, approved by the [place] Food and Drug Administration. The tests are used for clinical purposes. Billing Codes Specimen Charges Stain Charges 29042 18459 1 1 2:15 PM CDT DERMATOPATHOLOGY LABORATORY Embedded Images 2:15 PM T DERMATOPATHOLOGY LABORATORY Pathology/Cytology TISSUE SPECIMEN FROM SKIN / Unknown 04/25/2019 04/26/2019 6:46 AM CDT Miscellaneous samples (specimen) TISSUE SPECIMEN FROM SKIN / Unknown 04/25/2019 04/26/2019 6:46 AM CDT Yarelis Torres MD LAB - PATHOLOGY/CYT OLOGY ORDERABLES DERMATOPATHOLOGY LABORATORY [facility] - Department of Dermatology [address] [place] [address], 5th Floor Lab B [address] [phone] documented in this encounter Visit Diagnoses Not on filedocumented in this encounter
--- OUTSIDE RECORDS SUMMARY | 2025-01-28 15:39 | XMS_ITS | Clinical Summary ---
Author Organization [facility] Address [address] [facility] [place] [address] Care Team Providers Care Offal Trimmer Name Role Phone Unavailable Primary Care Provider Unavailabl e Source Comments [facility],non-owned Affiliates and Associated Physician Practices is amultiple site organization consisting of ambulatory clinics and hospital sitesin [place], [place], [place] and [place]. This disclosure is being madepursuant to the Care Everywhere program and may not contain all information available regarding this patient. Last updated 18.[facility] Encounters Date Type Department Care Team Description 12/04/2024 Lab Requisition [facility] - DermPath Lab [address] [facility] [place] [address] Madeleine Woody DO from Last 3 Months Social History Tobacco Use Types Packs/Day Years Used Date Smoking Tobacco: Never Assessed Sex and Gender Information Value Date Recorded Sex Assigned at Not on file Gender Identity Not on file Sexual Orientation Not on file Plan of Treatment Health Maintenance Due Date Last Done Comments HEPATITIS C SCREENING 12/17/1964 DTAP/TDAP/TD VACCINES (1 - Tdap) 1965 PNEUMOCOCCAL VACCINE 50+ (1 of 1 - PCV) 1996 ZOSTER VACCINE (1 of 2) 1996 Respiratory Syncytial Virus (RSV) Vaccine Pt: or over 60 yrs (1 - 1-dose 75+ series) 2021 COVID-19 VACCINE ( - 2023- season) 2024 INFLUENZA VACCINE (#1) 2024 , 08/23/2019, 08/28/2018, Additional history exists DEPRESSION SCREENING 11/07/2024 MEDICARE AWV CALENDAR YEAR 2024 HEPATITIS B VACCINE Aged Out No longe r eligible based on patient's age to complete this topic HIB VACCINE Aged Out No longer eligi ble based on patient's age to complete this topic HPV VACCINE Aged Out No longer eligi ble based on patient's age to complete this topic MENINGOCOCCAL (Group B) VACCINE SHARED DECISION-MAKING Aged Out No longer eligible based on patient's age to complete this topic MENINGOCOCCAL GROUPS A/C/Y/W VACCINE Aged Out No longer eligible based on patient's age to complete this topic Procedures Procedure Name Priority Date/Time Associated Diagnosis Comments DERMATOPATHOLOGY Routine 12/04/2024 9:15 AM FURNACE MASON from Last 3 Months Results * DERMATOPATHOLOGY (12/04/2024 9:15 AM FURNACE MASON) Case Report Dermatopathology Report Case: [id number] Authorizing Provider: Madeleine Woody DO Collected: 12/04/2024 09:15 AM Ordering Location: [facility] - Received: 12/04/2024 02:55 PM DermPath Lab Pathologist: Porsha Tabor MD Specimens: A) - Skin, left chest B) - Skin, right lower lip 12:14 PM FURNACE MASON DERMATOPATHOLOGY LABORATORY Final Diagnosis Specimen A. SKIN, left chest: BASAL CELL CARCINOMA, MICRONODULAR TYPE (C44.519) Specimen B. 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 Jar 0. 12:14 PM FURNACE MASON DERMATOPATHOLOGY LABORATORY Microscopic Description Specimen A. SKIN, left chest: Within the dermis there are small aggregates of basaloid cells with a high nuclear to cytoplasmic ratio and peripheral palisading of their nuclei. Specimen B. SKIN, right lower lip: Arising in the epidermis and extending into the dermis there are irregularly shaped aggregates of keratinocytes showing evidence of premature cornification. 5 12:14 PM FURNACE MASON DERMATOPATHOLOGY LABORATORY Disclaimer An external and internal positive and negative controls are appropriate for the histochemical, immunohistochemical and immunofluorescence stain(s) in this case (if any), except where stated explicitly. The performance characteristics of the stain(s) cited in this report were developed and its performance characteristic determined by the Dermatopathology Laboratory at [facility], directed by Dr. Rhett Tabor. These tests need not be, and therefore are not, approved by the [place] Food and Drug Administration. The tests are used for clinical purposes. Billing Codes Specimen Charges Stain Charges 44214 08421 1 1 5 12:14 PM FURNACE MASON DERMATOPATHOLOGY LABORATORY Embedded Images 12:14 PM FURNACE MASON DERMATOPATHOLOGY LABORATORY Pathology/Cytology TISSUE SPECIMEN FROM SKIN / Unknown 12/04/2024 9:15 AM FURNACE MASON 12/04/2024 2:55 PM FURNACE MASON Miscellaneous samples (specimen) TISSUE SPECIMEN FROM SKIN / Unknown 12/04/2024 9:15 AM FURNACE MASON 12/04/2024 2:55 PM FURNACE MASON Madeleine Woody DO LAB - PATHOLOGY/C YTOLOGY ORDERABLES Performing Organization Address City/State/[facility] Co de Phone Number DERMATOPATHOLOGY LABORATORY [facility] - Department of Dermatology [facility] Medicine [address] [place] [address], [address]rd Floor [address] [phone] from Last 3 Months Humphrey Liu Personal/Family Self 1945 (Naii) [address] [facility] [address] [address] [place] [address]
[2025-01-28 15:44] VITALS: BP 140/89; PULSE 90; RESP 16; TEMP 36.6; O2SAT 97
--- OUTSIDE RECORDS SUMMARY | 2025-01-28 17:26 | XMS_ITS | Encounter Summary ---
Author Organization [facility] Address [address] [facility] [place] [address] Care Team Providers Care Grain Manager Name Role Phone Unavailable Primary Care Provider Unavailabl e Encounter Details Date Type Department Care Team (Late st Contact Info) Description 10/19/2018 Lab Requisition [facility] Care DermPath Lab [address] [facility], [place] [address] Yarelis Torres MD [address] [facility] 3 [place] [address] Social History Tobacco Use Types Packs/Day Years [...] DERMATOPATH TECHNICAL REPORT Routine 10/18/2018 12:00 AM FENCE BUILDER documented in this encounter Results * DERMATOPATH TECHNICAL REPORT (10/18/2018 12:00 AM FENCE BUILDER) Case Report Dermatopathology Report Case: [id number] Authorizing Provider: Yarelis Torres MD Collected: 10/18/2018 12:00 AM Pathologist: Porsha Tabor MD Received: 10/19/2018 06:51 AM Specimen: Skin, right lateral eyebrow 8 11:25 AM FENCE BUILDER DERMATOPATHOLOGY LABORATORY Clinical History R/O BCC, irritated, non-healing. Check margins. 8 11:25 AM FENCE BUILDER DERMATOPATHOLOGY LABORATORY Gross Description Specimen A: Received is one formalin filled container labeled with the patient's name and designated right lateral eyebrow. The specimen consists of a shave measuring 0g6e5ym. The margin is inked green. Jar 0. [facility] Dermatopathology Laboratory performed the technical component only. 8 11:25 AM [facility] DERMATOPATHOLOGY LABORATORY Embedded Images 8 11:25 AM [facility] DERMATOPATHOLOGY LABORATORY DISCLAIMER An external and internal positive and negative controls are appropriate for the histochemical, immunohistochemical and immunofluorescence stain(s) in this case (if any), except where stated explicitly. The performance characteristics of the stain(s) cited in this report were developed and its performance characteristic determined by the Dermatopathology Laboratory at [facility]. These tests need not be, and therefore are not, approved by the [place] Food and Drug Administration. The tests are used for clinical purposes. 8 11:25 AM [facility] DERMATOPATHOLOGY LABORATORY Pathology/Cytolog y TISSUE SPECIMEN FROM SKIN / Unknown 10/18/2018 10/19/2018 6:51 AM FENCE BUILDER Yarelis Torres MD LAB - PATHOLOGY/CYT OLOGY ORDERABLES DERMATOPATHOLOGY LABORATORY [facility] - Department of Dermatology [address] [place] [address], 5th [place] [address], [facility] [phone] documented in this encounter Visit Diagnoses Not on filedocumented in this encounter
--- OUTSIDE RECORDS SUMMARY | 2025-01-28 17:26 | XMS_ITS | Clinical Summary ---
Author Organization [facility] Address [address] [place] [address] Care Team Providers Care Metal Reclamation Kettle Tender Name Role Phone Kat Chai Komal ABDI Primary Care Provider [phone] Allergies No known active allergies Medications hydroCHLOROthia [...] Diagnosis Comments COLONOSCOPY Routine 12/08/2003 12:00 AM MANAGER OF EMPLOYEE RELATIONS from Last 3 Months or Most Recently Relevant to Health Maintenance Results * Colonoscopy (12/08/2003 12:00 AM MANAGER OF EMPLOYEE RELATIONS) 12/08/2003 12/08/2003 Narrative [facility] TO EPIC CONVERSION - 12/08/2003 12:00 AM MANAGER OF EMPLOYEE RELATIONS Documented hx of procedure Procedure Note Amber Keane MD - 09/10/2018 Documented hx of procedure us Generic Conversion Md KEANE GI PROCEDURE ORDERABLES Final Result [facility] TO EPIC CONVERSION from Last 3 Months or Most Recently Relevant to Health Maintenance Insurance MED REPLACE [facility] [place] [address] Care Teams Metal Reclamation Kettle Tender Relationship Specialty Start Date End Date Chai Stephens DO [address] [place] [address] PCP - General 11/28/15
--- OUTSIDE RECORDS SUMMARY | 2025-01-28 17:26 | XMS_ITS | Encounter Summary ---
Author Organization [facility] Address [facility] [place] [address] Care Team Providers Care Varnishing Unit Tool Setter Name Role Phone Chai Stephens DO Primary Care Provider [phone] Encounter Details Date Type Department Care Team (Latest Contact Info) Description 09/12/2018 Abstract [facility] Medical [facility] , Amber Au MD Social [...] on filedocumented in this encounter Care Teams Varnishing Unit Tool Setter Relationship Specialty Start Date End Date Chai Stephens DO [address] [place] [address] PCP - General 11/28/15 documented as of this encounter
--- OUTSIDE RECORDS SUMMARY | 2025-01-28 17:26 | XMS_ITS | Encounter Summary ---
Author Organization [facility] Address [facility] [place] [address] Care Team Providers Care Bottle Washing Machine Operator Name Role Phone Chai Stephens DO Primary Care Provider [phone] Encounter Details Date Type Department Care Team (Late st Contact Info) Description 03/02/2016 Abstract [facility] CONVERSION [address] [place] [address] , Generic ConversionMD Social History Tobacco Use [...] on filedocumented in this encounter Care Teams Bottle Washing Machine Operator Relationship Specialty Start Date End Date Chai Stephens DO [address] [place] [address] PCP - General 11/28/15 documented as of this encounter
--- OUTSIDE RECORDS SUMMARY | 2025-01-28 17:26 | XMS_ITS | Encounter Summary ---
Author Organization [facility] Address [address] [facility] [place] [address] Care Team Providers Care English Language Learner Teacher Name Role Phone Unavailable Primary Care Provider Unavailabl e Encounter Details Date Type Department Care Team (Late st Contact Info) Description 12/04/2024 Lab Requisition [facility] - DermPath Lab [address] [facility], [place] [address] Madeleine Woody DO [address] [facility] 3 [place] [address] Social History Tobacco Use Types Packs/Day Years [...] Diagnosis Comments DERMATOPATHOLOGY Routine 12/04/2024 9:15 AM CIGAR HEAD PEGGER documented in this encounter Results * DERMATOPATHOLOGY (12/04/2024 9:15 AM CIGAR HEAD PEGGER) Case Report Dermatopathology Report Case: [id number] Authorizing Provider: Madeleine Woody DO Collected: 12/04/2024 09:15 AM Ordering Location: [facility] - Received: 12/04/2024 02:55 PM DermPath Lab Pathologist: Porsha Tabor MD Specimens: A) - Skin, left chest B) - Skin, right lower lip 12:14 PM CIG[employer] HEAD PEGGER DERMATOPATHOLOGY LABORATORY Final Diagnosis Specimen A. SKIN, left chest: BASAL CELL CARCINOMA, MICRONODULAR TYPE (C44.519) Specimen B. 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 Jar 0. 12:14 PM [facility] DERMATOPATHOLOGY LABORATORY Microscopic Description Specimen A. SKIN, left chest: Within the dermis there are small aggregates of basaloid cells with a high nuclear to cytoplasmic ratio and peripheral palisading of their nuclei. Specimen B. SKIN, right lower lip: Arising in the epidermis and extending into the dermis there are irregularly shaped aggregates of keratinocytes showing evidence of premature cornification. 12:14 PM [facility] DERMATOPATHOLOGY LABORATORY Disclaimer An external and internal positive and negative controls are appropriate for the histochemical, immunohistochemical and immunofluorescence stain(s) in this case (if any), except where stated explicitly. The performance characteristics of the stain(s) cited in this report were developed and its performance characteristic determined by the Dermatopathology Laboratory at [facility], directed by Dr. Rhett Tabor. These tests need not be, and therefore are not, approved by the [place] Food and Drug Administration. The tests are used for clinical purposes. Billing Codes Specimen Charges Stain Charges 12844 09202 1 1 12:14 PM [facility] DERMATOPATHOLOGY LABORATORY Embedded Images 12:14 PM [facility] DERMATOPATHOLOGY LABORATORY Pathology/Cytology TISSUE SPECIMEN FROM SKIN / Unknown 12/04/2024 9:15 AM CIGAR HEAD PEGGER 12/04/2024 2:55 PM CIGAR HEAD PEGGER Miscellaneous samples (specimen) TISSUE SPECIMEN FROM SKIN / Unknown 12/04/2024 9:15 AM CIGAR HEAD PEGGER 12/04/2024 2:55 PM CIGAR HEAD PEGGER Madeleine Woody DO LAB - PATHOLOGY/C YTOLOGY ORDERABLES DERMATOPATHOLOGY LABORATORY [facility] - Department of Dermatology [facility] [address] [place] [address], [address] [phone] documented in this encounter Visit Diagnoses Not on filedocumented in this encounter
--- OUTSIDE RECORDS SUMMARY | 2025-01-28 17:26 | XMS_ITS | Encounter Summary ---
Author Organization [facility] Address [address] [place] [address] Care Team Providers Care Vocational Teacher Name Role Phone Unavailable Primary Care Provider Unavailabl e Encounter Details Date Type Department Care Team (Late st Contact Info) Description 04/26/2019 Lab Requisition [facility] Care DermPath Lab [address] [facility], [place] [phone] Yarelis Torres MD [address] [facility] 3 [place] [address] Social History Tobacco Use Types Packs/Day Years [...] AM CDT) Case Report Dermatopathology Report Case: [id number] Authorizing Provider: Yarelis Torres MD Collected: 04/25/2019 [...] consists of a shave (2 pieces) measuring [id number] & [id number]. The margin is inked green. Jar 0. Specimen B: Received is one formalin filled container labeled with the patient's name and designated right sideburn. The specimen consists of a shave measuring [id number]. The margin is inked green. Jar 0. [...] characteristic determined by the Dermatopathology Laboratory at [facility], directed by Dr. Rhett Tabor. These tests need not be, and therefore are not, approved by the [place] Food and Drug Administration. The tests are used for clinical purposes. Billing Codes Specimen Charges Stain Charges 58560 01507 1 1 2:15 PM CDT DERMATOPATHOLOGY LABORATORY Embedded Images 2:15 PM T DERMATOPATHOLOGY LABORATORY Pathology/Cytology TISSUE SPECIMEN FROM SKIN / Unknown 04/25/2019 04/26/2019 6:46 AM CDT Miscellaneous samples (specimen) TISSUE SPECIMEN FROM SKIN / Unknown 04/25/2019 04/26/2019 6:46 AM CDT Yarelis Torres MD LAB - PATHOLOGY/CYT OLOGY ORDERABLES DERMATOPATHOLOGY LABORATORY [facility] - Department of Dermatology [address] [place] [address], 5th Floor Lab B [address] [phone] documented in this encounter Visit Diagnoses Not on filedocumented in this encounter
--- OUTSIDE RECORDS SUMMARY | 2025-01-28 17:26 | XMS_ITS | Encounter Summary ---
Author Organization [facility] Address [address] [facility] [place] [address] Care Team Providers Care Four Horse Hitch Driver Name Role Phone Unavailable Primary Care Provider Unavailabl e Encounter Details Date Type Department Care Team (Late st Contact Info) Description 08/29/2024 Lab Requisition [facility] - DermPath Lab [address] [facility], [place] [address] Madeleine Woody DO [address] [facility] 3 [place] [address] Social History Tobacco Use Types Packs/Day Years [...] AM CDT) Case Report Dermatopathology Report Case: [id number] Authorizing Provider: Madeleine Woody DO Collected: 08/29/2024 09:38 AM Ordering Location: [facility] Physician [facility] - Received: 08/30/2024 07:09 AM DermPath Lab [...] characteristic determined by the Dermatopathology Laboratory at [facility], directed by Dr. Rhett Tabor. These tests need not be, and therefore are not, approved by the [place] Food and Drug Administration. The tests are used for clinical purposes. Billing Codes Specimen Charges Stain Charges 33019 1 11:56 AM CDT DERMATOPATHOLOGY LABORATORY Embedded Images 11:56 AM CDT DERMATOPATHOLOGY LABORATORY Pathology/Cytolo gy TISSUE SPECIMEN FROM SKIN / Unknown 08/29/2024 9:38 AM CDT 08/30/2024 7:09 AM CDT Madeleine Woody DO LAB - PATHOLOGY/C YTOLOGY ORDERABLES DERMATOPATHOLOGY LABORATORY [facility] - Department of Dermatology [address], 3rd Floor [address] [phone] documented in this encounter Visit Diagnoses Not on filedocumented in this encounter
--- OUTSIDE RECORDS SUMMARY | 2025-01-28 17:26 | XMS_ITS | Clinical Summary ---
Author Organization [facility] Address [address] [facility] [place] [address] Care Team Providers Care Lab Director Name Role Phone Unavailable Primary Care Provider Unavailabl e Source Comments [facility],non-owned Affiliates and Associated Physician Practices is amultiple site organization consisting of ambulatory clinics and hospital sitesin [place], [place], [place] and [place]. This disclosure is being madepursuant to the Care Everywhere program and may not contain all information available regarding this patient. Last updated 18.[facility] Encounters Date Type Department Care Team Description 12/04/2024 Lab Requisition [facility] - DermPath Lab [address] [facility] [place] [address] Madeleine Woody DO from Last 3 Months [...] Diagnosis Comments DERMATOPATHOLOGY Routine 12/04/2024 9:15 AM PSYCH SALES SPECIALIST from Last 3 Months Results * DERMATOPATHOLOGY (12/04/2024 9:15 AM PSYCH SALES SPECIALIST) Case Report Dermatopathology Report Case: [id number] Authorizing Provider: Madeleine Woody DO Collected: 12/04/2024 09:15 AM Ordering Location: [facility] - Received: 12/04/2024 02:55 PM DermPath Lab Pathologist: Porsha Tabor MD Specimens: A) - Skin, left chest B) - Skin, right lower lip 12:14 PM PSYCH SALES SPECIALIST DERMATOPATHOLOGY LABORATORY Final Diagnosis Specimen A. SKIN, left chest: BASAL CELL CARCINOMA, MICRONODULAR TYPE (C44.519) Specimen B. 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 Jar 0. 12:14 PM PSYCH SALES SPECIALIST DERMATOPATHOLOGY LABORATORY Microscopic Description Specimen A. SKIN, left chest: Within the dermis there are small aggregates of basaloid cells with a high nuclear to cytoplasmic ratio and peripheral palisading of their nuclei. Specimen B. SKIN, right lower lip: Arising in the epidermis and extending into the dermis there are irregularly shaped aggregates of keratinocytes showing evidence of premature cornification. 5 12:14 PM PSYCH SALES SPECIALIST DERMATOPATHOLOGY LABORATORY Disclaimer An external and internal positive and negative controls are appropriate for the histochemical, immunohistochemical and immunofluorescence stain(s) in this case (if any), except where stated explicitly. The performance characteristics of the stain(s) cited in this report were developed and its performance characteristic determined by the Dermatopathology Laboratory at [facility], directed by Dr. Rhett Tabor. These tests need not be, and therefore are not, approved by the [place] Food and Drug Administration. The tests are used for clinical purposes. Billing Codes Specimen Charges Stain Charges 31265 95872 1 1 5 12:14 PM PSYCH SALES SPECIALIST DERMATOPATHOLOGY LABORATORY Embedded Images 12:14 PM PSYCH SALES SPECIALIST DERMATOPATHOLOGY LABORATORY Pathology/Cytology TISSUE SPECIMEN FROM SKIN / Unknown 12/04/2024 9:15 AM PSYCH SALES SPECIALIST 12/04/2024 2:55 PM PSYCH SALES SPECIALIST Miscellaneous samples (specimen) TISSUE SPECIMEN FROM SKIN / Unknown 12/04/2024 9:15 AM PSYCH SALES SPECIALIST 12/04/2024 2:55 PM PSYCH SALES SPECIALIST Madeleine Woody DO LAB - PATHOLOGY/C YTOLOGY ORDERABLES Performing Organization Address City/State/[facility] Co de Phone Number DERMATOPATHOLOGY LABORATORY [facility] - Department of Dermatology [facility] Medicine [address] [place] [address], [address] [phone] from Last 3 Months Humphrey Liu Personal/Family Self 1945 (Kdzd) [address] [facility] [address] [place] [address]
--- OUTSIDE RECORDS SUMMARY | 2025-01-28 17:26 | XMS_ITS | Encounter Summary ---
Author Organization [facility] Address [address] [facility] [place] [address] Care Team Providers Care Subscription Crew Leader Name Role Phone Unavailable Primary Care Provider Unavailabl e Encounter Details Date Type Department Care Team (Late st Contact Info) Description 09/08/2023 Lab Requisition [facility] - DermPath Lab [address] [facility] [place] [address] Madeleine Woody DO [address] [facility] 3 [place] [address] Social History Tobacco Use Types Packs/Day Years [...] AM CDT) Case Report Dermatopathology Report Case: [id number] Authorizing Provider: Madeleine Woody DO Collected: 09/08/2023 09:32 AM Ordering Location: [facility] DermPath Lab Received: 09/09/2023 01:22 PM Pathologist: Cristela Walters MD Specimens: A) - Skin, left post auricular B) - Skin, left chest 1:12 PM [facility] DERMATOPATHOLOGY LABORATORY Final Diagnosis Specimen A. SKIN, left post auricular: BASAL CELL CARCINOMA, NODULAR TYPE (C44.41) Specimen B. SKIN, left chest: HYPERPLASTIC (HYPERTROPHIC) ACTINIC KERATOSIS (L57.0) 1:12 PM CREATIVE SERVICES COORDINATOR DERMATOPATHOLOGY LABORATORY Clinical History A-B: R/O NMSC 1:12 PM [facility] DERMATOPATHOLOGY LABORATORY Gross Description Specimen [...] measuring 7x5x1 mm. Jar 0. 1:12 PM [facility] DERMATOPATHOLOGY LABORATORY Microscopic Description Specimen [...] lymphohistiocytic infiltrate within the dermis. 1:12 PM [facility] DERMATOPATHOLOGY LABORATORY Disclaimer An external and internal positive and negative controls are appropriate for the histochemical, immunohistochemical and immunofluorescence stain(s) in this case (if any), except where stated explicitly. The performance characteristics of the stain(s) cited in this report were developed and its performance characteristic determined by the Dermatopathology Laboratory at [facility], directed by Dr. Rhett Tabor. These tests need not be, and therefore are not, approved by the [place] Food and Drug Administration. The tests are used for clinical purposes. Billing Codes Specimen Charges Stain Charges 91535 91098 1 1 3 1:12 PM [facility] DERMATOPATHOLOGY LABORATORY Embedded Images 1:12 PM [facility] DERMATOPATHOLOGY LABORATORY Pathology/Cytology TISSUE SPECIMEN FROM SKIN / Unknown 09/08/2023 9:32 AM CDT 09/09/2023 1:22 PM CDT Miscellaneous samples (specimen) TISSUE SPECIMEN FROM SKIN / Unknown 09/08/2023 9:32 AM CDT 09/09/2023 1:22 PM CDT Madeleine Mylene Woody DO LAB - PATHOLOGY/C YTOLOGY ORDERABLES DERMATOPATHOLOGY LABORATORY [facility] - Department of Dermatology [facility] Special[facility] Medicine [address] [place] [address], [address] [phone] documented in this encounter Visit Diagnoses Not on filedocumented in this encounter
== END 2025-01-28 15:30 | disposition home or self-care (01) ==
PROVIDERS: Emergency Provider Emergency Medicine; PCP Family Medicine
DX: S81.811A Laceration without foreign body, right lower leg, initial encounter (principal); W45.8XXA Other foreign body or object entering through skin, initial encounter; I10 Essential (primary) hypertension; E78.5 Hyperlipidemia, unspecified; Z85.46 Personal history of malignant neoplasm of prostate
CPT/HCPCS: 12001; 99283